=== PATIENT | female | born 1990 | race Caucasian/White ===

== ENCOUNTER 2017-03-30 11:19 | Emergency (ER) | payer SELFPAY ==
[~2017-03-30] VITALS: Ht 157.5 cm; Wt 55.6 kg
[2017-03-30 11:25] VITALS: BP 126/88
== END 2017-03-30 13:30 | disposition home or self-care (01) ==
LOC: ED 11:19
DX: M54.9 Dorsalgia, unspecified (principal); G89.29 Other chronic pain
CPT/HCPCS: J1885

== ENCOUNTER 2017-07-11 13:18 | Emergency (ER) | payer MEDICAID ==
[~2017-07-11] VITALS: Ht 154.9 cm; Wt 55.3 kg
[2017-07-11 13:32] VITALS: BP 106/65
== END 2017-07-11 14:22 | disposition home or self-care (01) ==
LOC: ED 13:18
DX: S83.91XA Sprain of unspecified site of right knee, initial encounter (principal); Z79.899 Other long term (current) drug therapy; Y04.0XXA Assault by unarmed brawl or fight, initial encounter; Y93.89 Activity, other specified; Y92.89 Other specified places as the place of occurrence of the external cause; Y99.8 Other external cause status
CPT/HCPCS: J1885

== ENCOUNTER 2017-08-20 08:30 | Emergency (ER) | payer SELFPAY ==
[~2017-08-20] VITALS: Ht 154.9 cm; Wt 54.9 kg
[2017-08-20 08:35] VITALS: BP 145/72
== END 2017-08-20 09:08 | disposition home or self-care (01) ==
LOC: ED 08:30
DX: K02.9 Dental caries, unspecified (principal); F12.90 Cannabis use, unspecified, uncomplicated

== ENCOUNTER 2017-11-27 10:31 | Emergency (ER) | payer OTHER ==
[~2017-11-27] VITALS: Ht 152.4 cm; Wt 54.4 kg
[2017-11-27 11:25] VITALS: Ht 152.4 cm; Wt 54.4 kg
[2017-11-27 13:51] LABS: BASOPHIL % 0.6 % (0-2); PLATELET COUNT 240 x10^3mcL (130-400); RED CELL DISTRIBUTION WIDTH 13.3 % (11.5-14.5)
[2017-11-27 14:10] LABS: UA SPECIFIC GRAVITY 1.025 (1.005-1.035); microscopic required? YES; urine erythrocyte 3+ (NEGATIVE)
[2017-11-27 15:42] VITALS: BP 101/51
== END 2017-11-27 15:43 | disposition home or self-care (01) ==
LOC: ED 10:31
PROVIDERS: Emergency Medicine
DX: N92.0 Excessive and frequent menstruation with regular cycle (principal); N93.9 Abnormal uterine and vaginal bleeding, unspecified
CPT/HCPCS: 36415